=== PATIENT | male | born 1965 | race Caucasian/White ===

== ENCOUNTER 2021-08-03 10:10 | Observation (INO) | payer OTHER, SELFPAY ==
[2021-08-03] VITALS (22 sets, daily range): BP systolic 146–186; BP diastolic 82–94; PULSE 46–75; RESP 12–21; TEMP 36.6–36.8; O2SAT 96–100; BMI 31.3
--- NOTE | ~2021-08-03 | US_ITS ---
EXAMINATION: US right upper quadrant DATE: 08/03/2021 15:19 INDICATION: Epigastric abdominal pain. Nausea and vomiting. TECHNIQUE: Multiple grayscale and Doppler ultrasound images of the abdomen were obtained. COMPARISON: CT abdomen and pelvis 08/03/2021 FINDINGS: The visualized portions of the head and body of the pancreas are normal. The liver is dmitri l without focal lesion. There is normal flow in main portal vein. The gallbladder is distended and co ntains gallstones. Gallbladder wall thickening is noted. There was no sonographic Aaron sign. The co mmon duct is normal and measures 5 mm. IMPRESSION: 1. Distended gallbladder with gallstones and gallbladder wall thickening, but no sonographic Aaron s ign, likely acute cholecystitis. Reviewed, dictated and finalized at location A. IMPRESSION: 1. Distended gallbladder with gallstones and gallbladder wall thickening, but n o sonographic Aaron sign, likely acute cholecystitis.
--- NOTE | ~2021-08-03 | CT_ITS ---
EXAMINATION: CT abdomen pelvis w con DATE: 08/03/2021 13:34 INDICATION: Epigastric pain. Nausea and vomiting. TECHNIQUE: Computed tomography (CT) of the abdomen and pelvis was performed with 100 cc Omnipaque 350 intravenous contrast. The dose-length product was 751.10 mGy-cm. Automated exposure control and iter ative reconstruction technique were employed. COMPARISON: None. FINDINGS: Dependent atelectasis. Heart size normal. No significant pleural or pericardial effusion. S mall hiatal hernia. Gallbladder is distended with pericholecystic infiltration, suspicious for acute cholecystitis. No definite gallstones identified. There are calcified granulomas of the spleen. Prost ate gland mildly enlarged. The pancreas, adrenal glands and right kidney are unremarkable. There are subtle hypodensities of the left kidney, most likely benign cysts. There are nonobstructing left lefty l stones. Bladder is decompressed. No significant vascular abnormality. No lymphadenopathy small fat- containing umbilical hernia. No free air or free fluid. Nonobstructive bowel gas pattern. Mild lumbar spondylosis. IMPRESSION: 1. Distended gallbladder with mild pericholecystic fatty infiltration, suspicious for cholecystitis. No gallstones identified. Reviewed, dictated and finalized at location A. IMPRESSION: 1. Distended gallbladder with mild pericholecystic fatty infiltration, suspicio us for cholecystitis. No gallstones identified.
--- NOTE | ~2021-08-03 | XR_ITS ---
EXAMINATION: XR chest 2V 08/03/2021 10:24 INDICATION: Epigastric pain. Vomiting. PROCEDURE: 2 view chest COMPARISON: No prior studies FINDINGS: The lungs are clear. The cardiomediastinal silhouette is within normal limits. There are no pleural effusions. There is no pneumothorax suspected. IMPRESSION: 1: NO ACUTE CARDIOPULMONARY DISEASE. Reviewed, dictated and finalized at location A.
--- NOTE | 2021-08-03 10:12 | ECG_ITS ---
Measurements Intervals [place] Rate: 63 P: 10 IN: 174 QRS: 10 QRSD: 111 T: -1 QT: 416 QTc: 427 Interpretive Statements SINUS RHYTHM INTRAVENTRICULAR CONDUCTION DELAY BORDERLINE T WAVE ABNORMALITY- INFERIOR LEADS BORDERLINE ECG Electronically Signed On 08-03-2021 14:34:37 CDT by Gordo Ames D.O.
[2021-08-03 10:27] LABS: Basophils Absolute Auto 0.1 K/mm3 (0.0-0.1); Basophils Percent Auto 0.7 % (0.2-1.2); Eosinophils Absolute Auto 0.2 K/mm3 (0-0.3); Hematocrit 43.9 % (42.0-52.0); Hemoglobin 15.5 g/dL (14.0-18.0); Immature Granulocyte Absolute 0.04 K/mm3 (0.00-0.031); Immature Granulocyte Percent A 0.4 % (0-0.5); Lymphocytes Absolute Auto 2.48 K/mm3 (0.9-3.2); Lymphocytes Percent Auto 26.4 % (18.3-44.2); Mean Corpuscular HGB Conc 35.3 g/dl (32-36); Mean Corpuscular Hemoglobin 31.1 pg (26-34); Mean Platelet Volume 9.8 fl (7.4-10.4); Monocytes Absolute Auto 0.8 K/mm3 (0.1-0.6); Monocytes Percent Auto 8.6 % (2.6-8.5); Neutrophils Absolute Auto 5.8 K/mm3 (1.3-6.7); Neutrophils Percent Auto 61.9 % (45.5-73.1); Platelet Count Result 205 k/mm3 (150-375); Red Blood Count 4.99 M/mm3 (4.6-6.20); Red Cell Distribution Width 12.1 % (11.5-14.5); White Blood Count 9.4 K/mm3 (4.5-10.0)
[2021-08-03] MEDS: ASPIRIN 81 MG CHEWABLE TABLET 324 MG PO (10:29)
[2021-08-03 10:37] LABS: Anion Gap 9 mmol/L (8-16); Blood Urea Nitrogen 15 mg/dL (9-20); Carbon Dioxide 30 mmol/L (22-30); Chloride 103 mmol/L (98-107); Estimated CRCL calculation 99 ml/min; Estimated Glomerular Filt Rate > 60; Glucose 131 mg/dL (65-110); INR 0.8; Potassium 3.4 mmol/L (3.4-5.0); Prothrombin Time 11.5 Seconds (11.1-14.7); Sodium 142 mmol/L (137-145)
[2021-08-03 10:38] LABS: Partial Thromboplastin Time 26.8 SECONDS (22.3-36.8)
[2021-08-03 10:59] LABS: Troponin I < 0.012 ng/mL (0.000-0.034)
[2021-08-03] MEDS: SODIUM CHLORIDE 0.9% IV 1,000 ML 999 ML IV CONT (11:27)
[2021-08-03] MEDS: MAG HYDROX/AL HYDROX/SIMETH 30 ML UDC PO (11:28)
[2021-08-03] MEDS: LIDOCAINE HCL 2% VISC SOLN 15 ML UDC 20 ML PO (11:28)
--- NOTE | 2021-08-03 11:28 | PC.NURSE ---
called lab and added on a lipase
[2021-08-03] MEDS: PANTOPRAZOLE SODIUM IV 40 MG VIAL IV PUSH (11:29)
[2021-08-03] MEDS: FAMOTIDINE 20 MG/2 ML VIAL IV PUSH ×2 (11:29→20:17)
[2021-08-03] MEDS: ONDANSETRON INJ 4 MG/2 ML VIAL IV PUSH (11:29)
[2021-08-03 11:56] LABS: Lipase 87 U/L (23-300)
--- NOTE | 2021-08-03 12:24 | ED.CHESTPAIN ---
HPI - Chest Pain General Chief Complaint: Chest Pain Stated Complaint: epigastric pain since 0630 Time Seen by Provider: 08/03/21 10:49 Source: patient History of Present Illness HPI narrative: Patient presents with epigastric/chest pain. Pain is a burning sensation in the middle of his chest worse with laying flat improves with sitting up starts primarily in his epigastric area and radiates up into his chest. Symptoms started around 630 this morning. He has not noted any change with exertion denies any shortness of breath fevers cough or diarrhea. He does report some nausea and vomiting. Reports a history of indigestion but his symptoms are more severe today compared to his prior episodes of indigestion. Denies recent hospitalizations prior blood clots symptomatic cardiac family history Related Data Home Medications Medication Instructions Recorded Confirmed hydrochlorothiazide 25 mg PO DAILY 08/03/21 08/03/21 Allergies Allergy/AdvReac Type Severity Reaction Status Date / Time No Known Allergies Allergy Mild Verified 08/03/21 18:17 Review of Systems Review of Systems: CONSTITUTIONAL: Denies fever, chills, or sweats. EYES: Denies visual changes, redness, or discharge. ENT: Denies rhinorrhea, congestion, sore throat, or otalgia. CARDIOVASCULAR: Denies palpitations, or edema. RESPIRATORY: Denies cough or dyspnea. GASTROINTESTINAL: Patient ports abdominal pain nausea and vomiting GENITOURINARY: Denies dysuria or hematuria. SKIN: Denies rash or itching. MUSCULOSKELETAL: Denies back pain, joint pain, or myalgia. NEUROLOGIC: Denies headache, numbness, dizziness, or weakness. PSYCHIATRIC: Denies anxiety or depression. All systems reviewed & are unremarkable except as noted in HPI and below PMFSH Past Medical History Medical History (Updated 08/03/21 @ 16:16 by Johnson Peña MD) Indigestion Social History Social History (Updated 08/03/21 @ 12:26 by Johnson Peña MD) Smoking status: Never smoker Alcohol intake: never Substance use: never Substance use type: does not use Spiritual care concerns: No Exam Narrative: GENERAL: Well-appearing, well-nourished, and in mild acute distress. HEAD: Normocephalic, atraumatic. EYES: PERRLA and EOMI. ENT: Nares clear, no rhinorrhea or epistaxis. Mucous membranes moist. NECK: Supple. No masses. No JVD CHEST: Clear to auscultation. No respiratory distress. No wheezes rales or rhonchi HEART: Regular rate and rhythm. No murmur heard. Normal peripheral pulses. ABDOMEN: Minimal tenderness with the palpation of the epigastric area soft, nondistended EXTREMITIES: Normal range of motion. No edema. SKIN: Warm, dry, no rash. NEURO: No focal deficits. Alert and oriented x3. PSYCH: Normal mood and affect. Course Reevaluation(s) Reevaluation #1: Results reviewed with patient. Patient continues to have pain denies further therapies initial labs are reassuring. Pending delta Geovany will add on CT scan given his persistent pain and limited benefit with supportive therapies. Date: 08/03/21 Time: 12:27 Reevaluation #2: Patient resting comfortably after morphine pending ultrasound given CT findings remainder of labs are clinically unremarkable Date: 08/03/21 Time: 14:38 Reevaluation #3: Ultrasound concerning for cholecystitis discussed case with Dr. Sykes given reassuring labs patient would be appropriate candidate for outpatient elective surgery however patient reports he continues to have severe pain despite morphine will admit for inpatient management. Date: 08/03/21 Time: 16:14 Vital Signs Vital signs: Vital Signs Temperature 36.6 C 08/03/21 10:17 Pulse Rate 68 08/03/21 10:17 Respiratory Rate 21 H 08/03/21 10:17 Blood Pressure 186/94 H 08/03/21 10:17 Pulse Oximetry 99 08/03/21 10:17 Temperature 36.6 C 08/03/21 10:17 Pulse Rate 75 08/03/21 18:07 Respiratory Rate 16 08/03/21 18:07 Blood Pressure 152/94 H 08/03/21 18:07 Pulse Oximetr
[2021-08-03] MEDS: MORPHINE SULFATE (*CRX) 4 MG/ML INJ IV PUSH (12:58)
[2021-08-03 13:47] LABS: Troponin I < 0.012 ng/mL (0.000-0.034)
[2021-08-03 14:17] LABS: Alanine Aminotransferase 22 U/L (4-50); Albumin Level 4.4 g/dL (3.5-5.1); Alkaline Phosphatase 94 U/L (38-126); Aspartate Amino Transferase 28 U/L (17-59); Bilirubin,Total 0.4 mg/dL (0.2-1.3)
[2021-08-03 17:11] LABS: Troponin I < 0.012 ng/mL (0.000-0.034)
[2021-08-03] MEDS: SODIUM CHLORIDE 0.9% IV 1,000 ML 125 ML IV CONT (18:14)
--- NOTE | 2021-08-03 18:20 | ADMGEN ---
This patient, Onel Mota, was admitted to Medical Room 342-01. Patient/family oriented to hospital policies and general routines including ID bracelet, bed and alarms, visiting hours, pain management, procedures, bathroom and other care routines, personal items, smoking policy, room service/diet, and visiting hours. Information on how to activate the Rapid Response Team has been discussed. Patient/Family are encouraged to report perceived risks to care and to ask questions if they do not understand what they are told or what they should do.
[2021-08-04] MEDS: SODIUM CHLORIDE 0.9% IV 1,000 ML 125 ML IV CONT (02:24)
[2021-08-04 05:39] VITALS: PULSE 77; RESP 14; TEMP 37.2; O2SAT 98
[2021-08-04] MEDS: FAMOTIDINE 20 MG/2 ML VIAL IV PUSH (08:55)
[2021-08-04] MEDS: PANTOPRAZOLE SODIUM IV 40 MG VIAL IV PUSH (08:56)
--- NOTE | 2021-08-04 09:44 | PM.IMHP ---
H&P: HPI History of Present Illness Date/Time: 08/04/21 09:44 Pt is a 56 y/o M presenting c/o of severe epigastric/RUQ abd pain over last 1-2 days. Pt reports pain is constant, severe and radiates to chest. Pt reports assoc N/V, decreased appetitie. Pt reports similar episodes in the past but not as severe or constant. Pt has remote h/o PUD requiring surgery in the past but reports this seems different. Chief Complaint: cholecystitis Review of Systems Constitutional: Constitutional: Reports anorexia, Denies body ache(s), Denies chills, Denies fatigue, Denies fever(s), Denies increased appetite, Denies lethargy, Denies malaise, Reports poor appetite, Denies weakness, Denies weight gain and Denies weight loss Eyes: Eyes: Reports no additional eye complaints ENT: Reports system reviewed and no additional complaints, except as documented Cardiovascular: Cardiovascular: Reports no additional cardiovascular complaints Respiratory: Respiratory: Reports no additional respiratory complaints Gastrointestinal: Gastrointestinal: Reports as per HPI, Reports abdominal pain, Reports belching, Reports bloating, Denies change in stool character, Denies constipation, Reports GI cramping, Reports early satiety, Reports dyspepsia, Reports heartburn, Denies diarrhea, Denies loose stools, Reports nausea and Reports vomiting Genitourinary: Genitourinary: Reports no additional male genitourinary complaints Musculoskeletal: Musculoskeletal: Reports no additional musculoskeletal complaints Integumentary/Breasts: Skin/Breast: Reports system reviewed and no additional complaints, except as docu Neurologic: Reports system reviewed and no additional complaints, except as documented Psychiatric: Psychiatric: Reports no additional psychiatric complaints Endocrine: Endocrine: Reports no additional endocrine complaints Hematologic/Lymphatic: Hematologic/Lymphatic: Reports no additional hematologic/lymphatic complaints Allergic/Immunologic: Allergic/Immunologic: Reports no additional allergic/immunologic complaints [facility] Past Medical History Medical History Indigestion Social History Social History Smoking status: Never smoker Alcohol intake: never Substance use: never Substance use type: does not use Spiritual care concerns: No Comments PMH - HTN, PUD PSH - ulcer surgery in his 20s FH - pt denies any known biliary dz Meds Home Medications and Allergies Home Medications Medication Instructions Recorded Confirmed Type hydrochlorothiazide 25 mg PO DAILY 08/03/21 08/03/21 History Allergies Allergy/AdvReac Type Severity Reaction Status Date / Time No Known Allergies Allergy Mild Verified 08/03/21 18:17 Vital Signs Vital Signs - 24 hr 08/03/21 10:17 08/03/21 10:20 08/03/21 10:30 Temperature 36.6 C Pulse Rate 64 62 62 Respiratory Rate 20 18 Blood Pressure 186/94 H Pulse Oximetry 100 99 08/03/21 10:45 08/03/21 11:00 08/03/21 11:15 Temperature Pulse Rate 65 61 62 Respiratory Rate 12 13 19 Blood Pressure 181/85 H Pulse Oximetry 98 99 98 08/03/21 11:29 08/03/21 12:01 08/03/21 12:02 Temperature Pulse Rate 60 52 L 55 L Respiratory Rate 13 16 16 Blood Pressure 173/89 H 174/84 H Pulse Oximetry 100 100 100 08/03/21 12:30 08/03/21 12:53 08/03/21 13:00 Temperature Pulse Rate 46 L 57 L 56 L Respiratory Rate 21 H 21 H 19 Blood Pressure 168/88 H Pulse Oximetry 100 98 96 08/03/21 13:15 08/03/21 14:50 08/03/21 15:00 Temperature Pulse Rate 64 Respiratory Rate 17 Blood Pressure Pulse Oximetry 97 98 96 08/03/21 15:26 08/03/21 15:30 08/03/21 15:45 Temperature Pulse Rate 72 Respiratory Rate 17 Blood Pressure 162/88 H Pulse Oximetry 96 97 96 08/03/21 16:00 08/03/21 16:15 08/03/21 18:07 Temperature Pulse Rate 68 75 Respiratory Rate 17 16 B
--- NOTE | 2021-08-04 14:49 | P.DS_ITS ---
DS: Admitting Diagnosis Discharge Date 08/04/21 Admitting Diagnosis Acute cholecystitis with cholelithiasis DS: Discharge Diagnosis Discharge Diagnosis (1) Cholecystitis: Code(s): K81.9 - Cholecystitis, unspecified Status: Acute Assessment and Plan: arabella low fat diet, cont low fat diet, home c po abx, plan for urgent cholecystectomy in next wk as outpt DS: Summary Hospital Course Reason for hospitalization: acute cholecystitis Hospital Course: The patient is a 56-year-old male that presented to the emergency department complaining of severe epigastric and right upper quadrant abdominal pain. The patient reports this pain is associated with nausea and vomiting. Workup in the emergency department, including imaging, was consistent with cholecystitis. The patient was then subsequently admitted to the surgical service. Upon evaluation of the patient this morning, he reports that his pain is much improved. Given this, I started him on a low-fat diet which he tolerated without issue. At this point, he will be discharged home with continued low fat diet instruction as well as p.o. antibiotics. The patient urgent cholecystectomy as an outpatient in the next week. Status at Discharge Functional status at discharge: independent ambulation Overall status at discharge: patient is progressing back to baseline Time Spent with Patient Time attestation: Total time spent providing and/or coordinating discharge services: Time spent: Less than 30 minutes Exam Const: General: cooperative, comfortable and no acute distress Nutritional Appearance: obese Resp: Effort & Inspection: normal respiratory effort Auscultation: clear to auscultation bilaterally Cardio: Rate: regular rate Rhythm: regular rhythm GI: Inspection: normal to inspection and distended GI Palp: Yes Soft to palpation, Yes Tenderness to palpation present (GI), No Guarding due to palpation present (GI) and No Rigid due to palpation Other: soft, sl dist, mild TTP epigastrium/RUQ DS: Data Data Completed and Pending Labs on day of discharge: Labs from last 24 hours 08/03/21 16:43 Troponin I < 0.012 Discharge Plan Discharge Attending physician on discharge: Annika Sykes Discharging Clinician: Tanika Blake Anticipated Discharge Date/Time: 08/04/21 11:49 Patient Disposition: Home, Self-Care Activity: as tolerated Diet: low fat Discharge Instructions: * Follow a low fat diet. * We will work on schedule your surgery as an outpatient and give you a call regarding pre-operative information and time/date of surgery. If you have any questions or concerns sooner, please call ([phone]). * We sent a script to [facility] for an antibiotic. Please pick this up and take as prescribed for 5 more days. You take your first dose tonight and then start taking twice daily tomorrow. Take with food. Patient Instructions: Antibiotic Form, Low Fat Diet (DC), Pain Management (DC) Stand Alone Forms: General Discharge Information Follow-up/Referrals: Annika Sykes MD [Physician] - Discharge Medications: New ciprofloxacin HCl [Cipro] 500 mg tablet 500 mg PO Q12H Qty: 11 RF: 0 Continued hydrochlorothiazide 25 mg tablet 25 mg PO DAILY RF: 0 Date of admission: 08/03/21 16:16 Primary Care Provider: AprilMatthias Admitting Provider: Annika Sykes Attending physician on admission: Annika Sykes
== END 2021-08-04 12:27 | disposition home or self-care (01) ==
LOC: ANHED 16:16 → ANH3MED 16:46
PROVIDERS: Admitting Provider Surgery; Emergency Provider Emergency Medicine; PCP Physician Assistant; Visit Provider Surgery
DX: K80.00 Calculus of gallbladder with acute cholecystitis without obstruction (principal); I10 Essential (primary) hypertension
CPT/HCPCS: 36415; 71046; 74177; 76705; 80048; 80076; 83690; 84484; 85025; 85610; 85730; 93005; 96361; 96365; 96374; 96375; 96376; 99285; A9270; C9113; G0378; J2270; J2405; J2543; J7030; Q9967

== ENCOUNTER 2021-08-14 01:20 | Day surgery (SDC) | payer OTHER, SELFPAY ==
[2021-08-07 12:13] VITALS: BMI 31.3
[2021-08-07 13:39] LABS: Amylase 65 U/L (30-110)
--- NOTE | 2021-08-13 10:53 | WPDANESEPPF ---
Anes - Initial Pre Proc Eval Procedure: Operation Date: 08/14/21 12:45 Proposed Procedures p Laparoscopic Cholecystectomy - Annika Sykes MD Date/Time: 08/13/21 10:53 Surgeon: Annika Sykes MD Pre Op Diagnosis: Acute Cholecystitis with Cholelithiasis Patient Data Age: 56 Gender: M Height: 1.7 m Weight: 90.72 kg Allergies Allergy/AdvReac Type Severity Reaction Status Date / Time No Known Allergies Allergy Mild Verified 08/14/21 10:47 Home Medications Medication Instructions Recorded Confirmed Type hydrochlorothiazide 25 mg PO DAILY 08/03/21 08/14/21 History ascorbic acid (vitamin C) [Vitamin 1 g PO DAILY 08/07/21 08/14/21 History C] multivitamin with minerals [Men's 1 tablet PO DAILY 08/07/21 08/14/21 History One Daily] Patient hx anesthesia problems: none Family hx anesthesia problems: none Results Review: All pre-operative results and documents have been reviewed as part of the pre-operative evaluation. [facility] Past Medical History Medical History (Updated 08/13/21 @ 10:53 by Balwinder Laguerre DO) GERD (gastroesophageal reflux disease) Hypertension Indigestion Surgical History Surgical History (Updated 08/13/21 @ 10:53 by Balwinder Laguerre DO) History of tonsillectomy Social History Social History Smoking status: Never smoker Alcohol intake: never Alcohol use details: RARE Substance use: never Substance use type: does not use Living arrangements: with family Spiritual care concerns: No Anes - Eval Final PreProcedure Day of Procedure 08/13/21 10:53 Patient weight: obese Heart: regular rate and rhythm Lungs: clear to auscultation and normal air movement Airway: Mallampati scale class III Neurological: alert and oriented Last oral intake: >/= 8 hours ASA classification: III Emergent: no Anesthetic plan: proceed Anesthesia type and monitoring: general ETT and standard monitoring Results Review: All pre-operative results and documents have been reviewed as part of the pre-operative evaluation. Informed Consent: The patient's anesthetic plan and its attendant risks and benefits were discussed with the patient/family/POA. Questions were solicited and answers provided to the satisfaction of the patient/family/POA.
[2021-08-14] VITALS (10 sets, daily range): BP systolic 103–163; BP diastolic 49–92; PULSE 48–76; RESP 14–20; TEMP 36.2–37.1; O2SAT 94–100
[2021-08-14] MEDS: ACETAMINOPHEN 500 MG TABLET 1000 MG PO (11:17)
[2021-08-14] MEDS: LACTATED RINGERS 1,000 ML 30 ML IV CONT ×2 (11:25→14:05)
[2021-08-14] MEDS: KETOROLAC 15 MG/ML VIAL (*BKC) IV PUSH (11:28)
--- NOTE | 2021-08-14 11:59 | WPDHPUPDATE1 ---
History and Physical Update Update Date/Time: 08/14/21 11:59 History and Physical has been reviewed, including an updated exam of the patient. There are NO changes in the patient's condition. Risks, benefits, and alternatives have been discussed and questions answered. Patient agrees to proceed with procedure.
[2021-08-14] MEDS: ceFAZolin 2 GM/D5W 50 ML 2 GM/50 ML BAG IVPB (12:37)
[2021-08-14] MEDS: BUPIVACAINE HCL 0.5% PF 30 ML VIAL INFILTRATE (12:48)
--- NOTE | 2021-08-14 14:10 | W.PM.PROC2 ---
Procedure Note - Detailed Date of Procedure 08/14/21 Pre-op Diagnosis Acute Cholecystitis with Cholelithiasis Post-op Diagnosis same Procedure Performed Laparoscopic cholecystectomy Surgeon Annika Sykes MD Anesthesia general Indications 56-year-old male with acute cholecystitis, cholelithiasis. Patient was seen in the emergency department and subsequently admitted. Patient was discharged home with antibiotics and analgesia. He is now back for interval cholecystectomy. Findings Acute hydrops cholecystitis, cholelithiasis Description of Procedure The patient was taken to the operating room placed in the supine position. After adequate induction of general anesthesia, the patient was prepped and draped in normal sterile fashion. A time-out was then performed to verify the patient's identity as well as the procedure being performed. I then made a 5 mm incision in the infraumbilical region. Through this, a Veress needle was placed into the peritoneal cavity and CO2 gas was then insufflated. After adequate pneumoperitoneum was achieved, the Veress needle was removed and a 5 mm optiview trocar was placed through this incision under direct visualization. I then placed the laparoscope through this trocar site and under direct visualization placed a further 12 mm subxiphoid port as well as 2 additional 5 mm ports in the right upper abdomen. The gallbladder was then identified and was noted to be very inflamed, distended, and full of gallstones. I was able to place a grasper at the dome of the gallbladder and this was retracted anterior and cephalad up over the liver. A 2nd retractor was then placed at the infundibulum and retracted laterally, this allowed visualization of the triangle of Calot. I then was able to visualize the cystic duct in its entirety from its proximal insertion into the gallbladder, to its distal junction with the common hepatic/common bile duct junction. At this point, I carefully skeletonized the proximal cystic duct with the [place] dissector. I then clipped and transected the proximal cystic duct. Next I visualized the cystic artery. Again the artery was skeletonized, clipped, and transected. I then used the Bovie cautery to take down the peritoneal attachments of the gallbladder off the liver bed. This was difficult given the amount of inflammation in the posterior space. The wall of the gallbladder was also very friable. I did get into the gallbladder during the dissection and hydrops was noted. Once the gallbladder specimen was completely detached, an endo-pouch was placed through the 12 mm port site. I then placed the gallbladder specimen into the Endo pouch and removed the endo-pouch from the 12 mm port site. Some stones were noted to be in the gallbladder fossa and these were removed through the 12 mm port site. The specimen will now be sent to pathology for further review. I then copiously irrigated the right upper quadrant. Some mild oozing was noted in the liver bed and this was controlled with the bovie cautery. I then placed some hemostatic powder in the liver bed. Hemostasis was noted in the liver bed, the clips were noted to be in good position on both the cystic duct stump and the cystic artery stump. No other pathology was noted in the right upper quadrant. I then moved the laparoscope to the subxiphoid port. No iatrogenic injury or other pathology was noted in the lower abdomen. I then closed the 12 mm trocar site under direct visualization using an 0 Vicryl suture to close the fasia. At this point, the abdomen was desufflated and all ports removed. All port sites were then closed with 4.O Monocryl subcuticular sutures. Dermabond was placed on each incision. The patient tolerated the procedure well, was extubated in the operating room postoperative and will be transferred to the recovery room in stable condition Estimated Blood Loss 50 Drains No Packing No Pathology yes Complications No immedi
[2021-08-14] MEDS: ONDANSETRON INJ 4 MG/2 ML VIAL IV PUSH (14:44)
--- NOTE | 2021-08-14 14:47 | SUR.PHASEI ---
DR PULIDO AT BEDSIDE SPEAKING TO PT.
[2021-08-14] MEDS: SCOPOLAMINE 1.5 MG PATCH TRANSDERM (15:01)
[2021-08-14] MEDS: diphenhydrAMINE HCl INJ 50 MG/ML VIAL 25 MG IV PUSH (15:01)
--- NOTE | 2021-08-14 15:49 | SUR.PHASEI ---
1535; PT MORE AWAKE. DENIES PAIN. STATES NAUSEA BETTER NOW. READY TO GO TO [place] AND SEE FAMILY.
== END 2021-08-14 16:45 | disposition home or self-care (01) ==
PROVIDERS: PCP Physician Assistant; Visit Provider Surgery
PROC: 0FT44ZZ Resection of Gallbladder, Percutaneous Endoscopic Approach (ICD-10-PCS; CPT 47562; principal; 2021-08-14 12:45)
DX: K80.00 Calculus of gallbladder with acute cholecystitis without obstruction (principal); R10.11 Right upper quadrant pain; R10.13 Epigastric pain; K21.9 Gastro-esophageal reflux disease without esophagitis; I10 Essential (primary) hypertension; E66.9 Obesity, unspecified; Z68.31 Body mass index [BMI] 31.0-31.9, adult
CPT/HCPCS: 47562; 36415; 82150; 86850; 86900; 86901; 88304; A9270; J0690; J1100; J1200; J1885; J2405; J2704; J2710; J3010; J7030; J7120

== ENCOUNTER 2021-10-15 16:34 | Emergency (ER) | payer OTHER, SELFPAY ==
[2021-10-15 16:51] VITALS: BP 144/82; PULSE 82; RESP 18; TEMP 36.5; O2SAT 97
--- NOTE | 2021-10-15 17:08 | ED.GENADULT ---
HPI - General Adult General Chief complaint: Upper Respiratory Infection Stated complaint: cold symptoms Source: patient Mode of arrival: ambulatory Limitations: no limitations History of Present Illness HPI narrative: Patient is a 56-year-old male who presents to the urgent care via POV for evaluation of Covid exposure. He also reports a sore throat, dry cough, and nasal drainage that began 3 days ago. He states his Covid exposure was on 10/11/2021. DayQuil, NyQuil, and Aleve improves symptoms. Patient reports he has been taking 4 Aleve for his throat pain. Denies aggravating factors. Patient reports he is fully vaccinated against Covid. He states he has not vaccinated against influenza. Related Data Home Medications Medication Instructions Recorded Confirmed hydrochlorothiazide 25 mg PO DAILY 08/03/21 10/15/21 Allergies Allergy/AdvReac Type Severity Reaction Status Date / Time No Known Allergies Allergy Mild Verified 10/15/21 17:03 Review of Systems Review of Systems: Denies fever, chills, sweats, change in appetite, poor p.o. intake, sinus problems, sneezing, abdominal pain, nausea, vomiting, diarrhea, wheezing, shortness of breath, cyanosis, chest pain, heart palpitations, and myalgias PMFSH Past Medical History Medical History GERD (gastroesophageal reflux disease) Hypertension Indigestion Surgical History Surgical History History of tonsillectomy Hx laparoscopic cholecystectomy 08/14/21 Social History Social History Smoking status: Never smoker Alcohol intake: never Alcohol use details: RARE Substance use: never Substance use type: does not use Spiritual care concerns: No Comments I have reviewed and agree with the patient's past medical, surgical, social, and family hx as documented by the RN. There is no relevant family history pertinent to the presenting complaint. Exam Narrative: GENERAL: Well-appearing, well-nourished, and in no acute distress. HEAD: Normocephalic, atraumatic. No sinus tenderness or facial swelling appreciated. EYES: PERRLA and EOMI. No evidence of erythema, swelling, or drainage. ENT: Bilateral external ears and ear canals normal. Bilateral TMs are normal.No TM perforation. Nares clear, no rhinorrhea or epistaxis. Bilateral turbinates without erythema/ swelling. Mucous membranes moist and pink. Uvula is midline without erythema and swelling. Moderate swelling and erythema noted to bilateral tonsils otherwise normal. Breath odor and voice normal. NECK: Supple. No Lymphadenopathy or nuchal rigidity appreciated. CHEST: Bilateral lung carpio are clear to auscultation. No respiratory distress. No evidence of cough or pleuritic cp upon examination. HEART: Regular rate and rhythm. No murmur, gallop, or rub heard. EXTREMITIES: Normal range of motion. No edema. SKIN: Warm, dry, no rash. NEURO: No focal deficits. Alert and oriented x3. Course Vital Signs Vital signs: Vital Signs Temperature 97.7 F 10/15/21 16:51 Pulse Rate 82 10/15/21 16:51 Respiratory Rate 18 10/15/21 16:51 Blood Pressure 144/82 H 10/15/21 16:51 Pulse Oximetry 97 10/15/21 16:51 Temperature 97.7 F 10/15/21 16:51 Pulse Rate 82 10/15/21 16:51 Respiratory Rate 18 10/15/21 16:51 Blood Pressure 144/82 H 10/15/21 16:51 Pulse Oximetry 97 10/15/21 16:51 Due to an elevated blood pressure, I had a detailed discussion with the patient and/or guardian regarding the need for follow-up with their primary care provider within the next 3-4 days. Patient verbalized understanding and agreed. Medical Decision Making Differential Diagnosis Differential Diagnosis: Allergic rhinitis, ABRS, acute viral sinusitis, strep pharyngitis, nasopharyngitis, bronchitis, pneumonia, AOM, otitis externa,
== END 2021-10-15 17:21 | disposition home or self-care (01) ==
PROVIDERS: Emergency Provider Nurse Practitioner Family; PCP Physician Assistant
DX: U07.1 COVID-19 (principal); K21.9 Gastro-esophageal reflux disease without esophagitis; I10 Essential (primary) hypertension
CPT/HCPCS: 87426; 99213; C9803; G0463

== ENCOUNTER 2022-03-08 12:09 | Emergency (ER) | payer OTHER, SELFPAY ==
--- NOTE | ~2022-03-08 | CT_ITS ---
EXAMINATION: CT abdomen pelvis wo/w con DATE: 03/08/2022 14:45 INDICATION: hematuria TECHNIQUE: Computed tomography (CT) of the abdomen and pelvis was performed without and with 130 mL O mnipaque 300 intravenous contrast. Automated exposure control and iterative reconstruction technique were employed. The dose-length product was 1639.28 mGy-cm. COMPARISON: 08/03/2021. FINDINGS: Lower thorax: Unremarkable Liver: Normal. Biliary/Gallbladder: Gallbladder is absent. No bile duct dilation. Pancreas: No mass or duct dilation. Spleen: Normal. Adrenals:No mass. Kidneys: Bilateral hypodensities, too small to characterize but most likely represent cysts. Mild lef t caliectasis, stable. No filling defects in the proximal collecting system. GI tract: No small or large bowel dilation. Normal appendix. Mesentery/Peritoneum: No ascites, mass, or free air. Prominent mesenteric lymph nodes. Retroperitoneum: No mass. Pelvis: Marked prostatomegaly. Bladder is decompressed by Head. Linear filling defects in the left a nd right aspects of the inferior bladder, may represent debris. Soft Tissues: Small fat-containing bilateral inguinal hernias. Prominent bilateral inguinal lymph nod es. Bones: No acute osseous finding. IMPRESSION: Small linear filling defect in the inferior bladder may represent debris such as clot. Consider nonem ergent urology referral to exclude bladder masses. Reviewed, dictated and finalized at location [facility]. IMPRESSION: Small linear filling defect in the inferior bladder may represent debris such a s clot. Consider nonemergent urology referral to exclude bladder masses.
[2022-03-08 12:09] VITALS: BP 150/82; PULSE 91; RESP 17; TEMP 36.3; O2SAT 100
[2022-03-08 12:55] LABS: INR 1.1; Prothrombin Time 13.6 Seconds (11.1-14.7)
[2022-03-08 12:56] LABS: Alanine Aminotransferase 32 U/L (6-50); Albumin Level 4.5 g/dL (3.5-5.1); Alkaline Phosphatase 122 U/L (38-126); Anion Gap 10 mmol/L (8-16); Aspartate Amino Transferase 36 U/L (17-59); Bilirubin,Total 0.6 mg/dL (0.2-1.3); Blood Urea Nitrogen 15 mg/dL (9-20); Calcium 9.1 mg/dL (8.4-10.2); Carbon Dioxide 23 mmol/L (22-30); Chloride 108 mmol/L (98-107); Estimated CRCL calculation 73 ml/min; Estimated Glomerular Filt Rate > 60; Glucose 121 mg/dL (65-110); Partial Thromboplastin Time 30.4 SECONDS (22.3-36.8); Potassium 3.9 mmol/L (3.4-5.0); Sodium 141 mmol/L (137-145)
[2022-03-08 13:05] LABS: Basophils Absolute Auto 0.1 K/mm3 (0.0-0.1); Basophils Percent Auto 1.2 % (0.2-1.2); Eosinophils Absolute Auto 0.1 K/mm3 (0-0.3); Eosinophils Percent Auto 1.6 % (0-4.4); Hematocrit 45.2 % (42.0-52.0); Hemoglobin 15.6 g/dL (14.0-18.0); Immature Granulocyte Absolute 0.02 K/mm3 (0.00-0.031); Immature Granulocyte Percent A 0.3 % (0-0.5); Lymphocytes Absolute Auto 2.14 K/mm3 (0.9-3.2); Mean Corpuscular HGB Conc 34.5 g/dl (32-36); Mean Corpuscular Hemoglobin 30.8 pg (26-34); Mean Corpuscular Volume 89.2 fl (80-100); Mean Platelet Volume 10.3 fl (7.4-10.4); Monocytes Absolute Auto 0.6 K/mm3 (0.1-0.6); Monocytes Percent Auto 8.3 % (2.6-8.5); Neutrophils Percent Auto 57.6 % (45.5-73.1); Platelet Count Result 211 k/mm3 (150-375); Red Blood Count 5.07 M/mm3 (4.6-6.20); Red Cell Distribution Width 13.1 % (11.5-14.5); White Blood Count 6.9 K/mm3 (4.5-10.0)
--- NOTE | 2022-03-08 13:20 | ED.MALEGU ---
HPI - Male Genitourinary General Chief complaint: Urogenital-Male Stated complaint: blood in urine/catheter Time Seen by Provider: 03/08/22 12:19 Source: patient and RN notes reviewed Mode of arrival: ambulatory Limitations: no limitations History of Present Illness HPI Narrative: This is a 56 year old male who presents for evaluation of hematuria. Patient starting having decrease in his urine flow last week . He states he felt like he was not emptying his bladder so his PCP started him on Bactrim on 03/03/22. Patient stopped urinating completely on Wednesday, so he went to ER in [place]. He had Head catheter placed at that time. He was also started on Flomax at that time. He has continued to have bladder spasms, and he still feel like he is not emptying his bladder. He states today he noticed his urine was darker, and he also saw clots in his catheter. He feels like his catheter is not draining. He denies nausea, vomiting, abdominal pain, back pain, fever or chills. Related Data Home Medications Medication Instructions Recorded Confirmed fluticasone propionate INTRANASAL 03/08/22 03/08/22 hydrochlorothiazide 03/08/22 hydrochlorothiazide 03/08/22 sulfamethoxazole-trimethoprim tablet 03/08/22 tamsulosin mg PO 03/08/22 03/08/22 Allergies Allergy/AdvReac Type Severity Reaction Status Date / Time No Known Allergies Allergy Mild Verified 03/08/22 12:54 Review of Systems Review of Systems: All systems reviewed & are unremarkable except as noted in HPI and below Constitutional: Constitutional: Denies chills and Denies fever(s) Respiratory: Respiratory: Denies cough and Denies dyspnea Gastrointestinal: Gastrointestinal: Denies abdominal pain, Denies diarrhea, Denies nausea and Denies vomiting Genitourinary: Genitourinary: Reports hematuria, Denies dysuria and Reports urinary frequency Musculoskeletal: Musculoskeletal: Denies back pain and Denies muscle cramps PMFSH Past Medical History Medical History GERD (gastroesophageal reflux disease) Hypertension Indigestion Surgical History Surgical History History of tonsillectomy Hx laparoscopic cholecystectomy 08/14/21 Social History Social History Smoking status: Never smoker Alcohol intake: never Alcohol use details: RARE Substance use: never Substance use type: does not use Spiritual care concerns: No Exam Narrative: GENERAL: Well-appearing, well-nourished, and in no acute distress. HEAD: Normocephalic, atraumatic EYES: PERRLA and EOMI, conjunctiva clear without discharge THROAT:Mucous membranes moist, Oropharynx normal without erythema, exudate, peritonsillar swelling or fluctuance NECK: Supple, without lymphadenopathy or mass RESPIRATORY: No respiratory distress, Airway patent, Respirations non-labored, Clear to auscultation without rales, rhonchi or wheeze HEART: Regular rate and rhythm. No murmur heard. Normal peripheral pulses. ABDOMEN: Soft, nontender, nondistended, normal active bowel sounds. No masses. No rebound or guarding, No organomegaly. EXTREMITIES: No edema, normal strength with full range of motion. SKIN: Warm, dry, normal color without rash NEURO: Alert and oriented x3. CN 2-12 grossly intact. No focal deficits. PSYCH: Normal mood and affect. Const: General: alert : Penis: Yes circumcised Other: blood around catheter at meatus Urinary Catheter: Urinary Catheter: urine dark Course Reevaluation(s) Reevaluation #1: Patient states he feels better after levsin. His bladder is completely decompressed . Bladder was irrigated with return of clear urine, no clots. He was given dose of rocephin and he will discontinue his bactrim. He will continue his flomax. I spoke with urologist Dr. Lin who agrees with plan. Patient will follow up
[2022-03-08 13:22] LABS: RBC Urine >75 /hpf (0-2); WBC Urine >75 /hpf
[2022-03-08 13:39] LABS: Appearance Urine Turbid (Clear); Color Urine Brown (Yellow); pH Urine 6.5 (5.0-9.0)
[2022-03-08 13:40] LABS: Blood Urine 4+ (Negative); Glucose Urine UA Negative (Negative); Ketones Urine Trace mg/dL (Negative); Nitrate Urine Positive (Negative); Protein Urine 1+ mg/dL (Negative)
[2022-03-08 13:41] LABS: Add Urine Microscopic? YES; Bilirubin Urine 2+ (Negative); Leukocyte Esterase Ur 1+ LEU/UL (Negative); Urobilinogen Urine 0.2 mg/dL (<2.0)
[2022-03-08] MEDS: HYOSCYAMINE SULFATE 0.125 MG TABLET PO (13:47)
[2022-03-08 15:00] VITALS: BP 135/80; PULSE 72; RESP 16; O2SAT 100
--- NOTE | 2022-03-08 16:03 | PC.NURSE ---
PT'S BLADDER IRRIGATED WITH 250ML OF STERILE WATER. PT TOLERATED WELL. 250ML RETURN OF CLEAR URINE/WATER. DR PEREZ MADE AWARE.
[2022-03-08 16:45] VITALS: BP 136/77; PULSE 76; RESP 16; O2SAT 100
== END 2022-03-08 16:45 | disposition home or self-care (01) ==
PROVIDERS: Emergency Provider General Practice; PCP Physician Assistant
DX: N40.0 Benign prostatic hyperplasia without lower urinary tract symptoms (principal); N39.0 Urinary tract infection, site not specified; R31.0 Gross hematuria; I10 Essential (primary) hypertension
CPT/HCPCS: 36415; 74178; 80053; 81001; 85025; 85610; 85730; 87086; 96365; 99284; A9270; J0696; Q9967